=== PATIENT | female | born 1985 | race Caucasian/White ===

== ENCOUNTER 2020-04-17 06:54 | Outpatient (CLI) | payer BC, SELFPAY ==
--- NOTE | ~2020-04-17 | MR_ITS ---
EXAMINATION: MR lumbar spine wo con DATE: 04/17/2020 07:51 INDICATION: Lumbar radiculopathy. TECHNIQUE: Magnetic resonance imaging (MRI) of the lumbar spine was performed without intravenous con trast. Sequences included sagittal T2-weighted FSE, sagittal T2-weighted FS FSE, sagittal T1-weighted FSE, and axial T2-weighted FSE. COMPARISON: Lumbar spine MRI 12/30/2017 FINDINGS: There is 5 degrees dextrocurvature of lumbar spine. There are Schmorl's nodes at most level s. There is mildly decreased disc height at L4-L5 and L5-S1. The distal spinal cord signal intensity is normal. The conus medullaris is at L1. The following disc levels are specifically discussed: L1-L2: The disc does not extend beyond the endplate margin. There is mild bilateral facet joint osteo arthritis. There is no neural foraminal stenosis. There is no central canal stenosis. L2-L3: The disc does not extend beyond the endplate margin. There is mild bilateral facet joint osteo arthritis. There is no neural foraminal stenosis. There is no central canal stenosis. L3-L4: The disc does not extend beyond the endplate margin. There is mild bilateral facet joint osteo arthritis. There is no neural foraminal stenosis. There is no central canal stenosis. L4-L5: The disc is bulging with superimposed left central extrusion with mass effect on the bilateral L5 nerve roots in the lateral recesses. There is mild bilateral facet joint osteoarthritis. There is moderate right and mild left neural foraminal stenosis. There is mild central canal stenosis. L5-S1: The disc is bulging and has an annular fissure. There is mild bilateral facet joint osteoarthr itis. There is mild bilateral neural foraminal stenosis. There is mild central canal stenosis. IMPRESSION: 1. Moderate lower lumbar spondylosis with interval improvement at L5-S1. Reviewed, dictated and finalized at location B.
== END 2020-04-17 06:55 | disposition home or self-care (01) ==
PROVIDERS: PCP Physician Assistant; Visit Provider Nurse Practitioner Adult Health
DX: M54.16 Radiculopathy, lumbar region (principal)
CPT/HCPCS: 72148

== ENCOUNTER 2020-06-10 06:58 | Outpatient (NON) | payer BC, SELFPAY ==
[2020-06-10 18:21] LABS: SARS-CoV-2 RNA PCR Positive
== END 2020-06-10 06:59 ==
LOC: ANHCOVIDDT 07:16
PROVIDERS: PCP Physician Assistant; Visit Provider Physician Assistant
DX: U07.1 COVID-19 (principal)
CPT/HCPCS: 87635; C9803; U0003

== ENCOUNTER 2021-07-16 11:20 | Outpatient (CLI) | payer BC, SELFPAY ==
[2021-07-16 12:54] LABS: SARS-CoV-2 Ag Negative (Negative)
== END 2021-07-16 11:21 | disposition home or self-care (01) ==
LOC: CHSLAB 11:22
PROVIDERS: PCP Physician Assistant; Visit Provider Physician Assistant
DX: R68.89 Other general symptoms and signs (principal)
CPT/HCPCS: 87426; C9803

== ENCOUNTER 2022-05-30 08:03 | Emergency (ER) | payer BC, SELFPAY ==
--- NOTE | 2022-05-30 08:08 | ED.URI ---
HPI - URI/Sore Throat General Chief Complaint: Upper Respiratory Infection Stated Complaint: Sore Throat Time Seen by Provider: 05/30/22 08:08 Source: patient, RN notes reviewed and old records reviewed Mode of arrival: ambulatory Limitations: no limitations History of Present Illness HPI Narrative: 37-year-old female presents to the [facility] with complaints of a sore throat. Started yesterday with a scratchy throat. Woke up this morning with low-grade fever and painful swallowing. No treatment prior to arrival Onset (ago): day(s) (1) Consistency: constant Related Data Allergies Allergy/AdvReac Type Severity Reaction Status Date / Time erythromycin base Allergy Mild unkown Verified 05/30/22 08:42 Penicillins Allergy Mild Unknown Verified 05/30/22 08:42 Review of Systems Review of Systems: All systems reviewed & are unremarkable except as noted in HPI and below Constitutional: Constitutional: Reports no additional constitutional complaints, Denies chills and Denies fever(s) Eyes: Eyes: Reports no additional eye complaints ENT: Reports as per HPI and Reports sore throat Cardiovascular: Cardiovascular: Reports no additional cardiovascular complaints Respiratory: Respiratory: Reports no additional respiratory complaints Gastrointestinal: Gastrointestinal: Reports no additional gastrointestinal complaints Musculoskeletal: Musculoskeletal: Reports no additional musculoskeletal complaints Integumentary/Breasts: Skin/Breast: Reports system reviewed and no additional complaints, except as docu Neurologic: Reports system reviewed and no additional complaints, except as documented Psychiatric: Psychiatric: Reports no additional psychiatric complaints Allergic/Immunologic: Allergic/Immunologic: Reports no additional allergic/immunologic complaints PMFSH Past Medical History Medical History Anxiety and depression Family History Family History Father Back pain COPD (chronic obstructive pulmonary disease) Diabetes mellitus Mother Hypertension Migraine headache Mother Family history of migraine headaches Patient's mother is in good health Grandparent Hypertension Family history of Alzheimer's disease Family history of hearing loss Father Family history of chronic obstructive pulmonary disease Family history of diabetes mellitus in first degree relative Other Family history of malignant neoplasm of breast Social History Social History Smoking packs per day: 0.5 Smoking cigarettes per day: 10.0 Years smoked: 1 Smoking pack-years: 0.50 Smoking status: Former smoker Second hand tobacco smoke exposure: No Smoking end date: 07/10/17 Alcohol intake: current Comments At the time of my signature, I reviewed and agree with the nursing past medical, surgical, social, and family history. There is no relevant family history pertinent to the patient complaint. Exam Const: General: no acute distress, well developed, alert, ill appearing (mild) acutely, uncomfortable and well nourished Nutritional Appearance: well nourished and obese Orientation/consciousness: patient oriented x3 Limitations: no limitations HENMT: Head: normal to inspection Ears: external ears normal, TM's normal bilaterally and EAC's normal Face/Nose/Sinus: Normal external nose present Face and sinus: normal facial exam Mouth: Yes Normal oral and palatal mucosa present, Yes lip normal and Yes tongue normal Throat: tonsils normal, uvula midline, posterior oropharynx abnormal erythema; no exudates and uvular edema Eyes: General: appearance normal, both eyes and all related structures Conjunctivae: conjunctivae normal Pupils: Equal, round and reactive pupils present Neck: Neck: normal visual inspection, full ROM, no lymphadenopathy and no meningeal signs Chest:
[2022-05-30 08:20] VITALS: BP 147/95; PULSE 92; RESP 14; TEMP 37.4; O2SAT 98
== END 2022-05-30 08:44 | disposition home or self-care (01) ==
PROVIDERS: Emergency Provider Nurse Practitioner; PCP Physician Assistant
DX: K12.2 Cellulitis and abscess of mouth (principal); Z87.891 Personal history of nicotine dependence; F41.9 Anxiety disorder, unspecified; F32.A Depression, unspecified
CPT/HCPCS: 87081; 87804; 87880; 99213; G0463

== ENCOUNTER 2022-06-01 14:04 | Outpatient (CLI) | payer BC, SELFPAY ==
[2022-06-01 15:14] LABS: SARS-CoV-2 RNA PCR Positive
== END 2022-06-01 14:05 | disposition home or self-care (01) ==
LOC: ANHLAB 14:06
PROVIDERS: PCP Physician Assistant; Visit Provider Physician Assistant
DX: U07.1 COVID-19 (principal)
CPT/HCPCS: U0003; U0005

== ENCOUNTER 2023-01-18 16:50 | Outpatient (CLI) | payer BC, SELFPAY ==
--- NOTE | ~2023-01-18 | XR_ITS ---
EXAMINATION: XR shoulder LT min 2V DATE: 01/18/2023 17:14 INDICATION: Cervical radiculopathy. TECHNIQUE: 4 views of left shoulder were obtained. COMPARISON: None. FINDINGS: Bone alignment is normal. No fracture. There is mild osteoarthritis of glenohumeral joint. Acromioclavicular joint is normal. IMPRESSION: 1. Mild left glenohumeral joint osteoarthritis. Reviewed, dictated and finalized at location E.
--- NOTE | ~2023-01-18 | XR_ITS ---
EXAMINATION: XR cervical spine 4-5V DATE: 01/18/2023 17:14 INDICATION: Radiculopathy, cervical region. TECHNIQUE: 4 views of cervical spine were obtained. COMPARISON: None. FINDINGS: There is kyphosis of cervical spine. There is 5 degrees levocurvature of cervical spine. Ve rtebral body heights and intervertebral disc heights are normal. There is mild uncovertebral joint os teoarthritis on the right at C4-C5 and C5-C6. There is multilevel facet joint osteoarthritis, moderat e to severe at C7-T1. There is mild central canal stenosis at C4-C5 and C5-C6. No prevertebral soft t issue swelling. IMPRESSION: 1. Mild cervical spondylosis. Reviewed, dictated and finalized at location E.
== END 2023-01-18 16:51 | disposition home or self-care (01) ==
PROVIDERS: PCP Physician Assistant; Visit Provider Physician Assistant
DX: M47.22 Other spondylosis with radiculopathy, cervical region (principal); M19.012 Primary osteoarthritis, left shoulder
CPT/HCPCS: 72050; 73030

== ENCOUNTER 2023-02-04 10:34 | Outpatient (CLI) | payer BC, SELFPAY ==
--- NOTE | ~2023-02-04 | MR_ITS ---
MRI of the cervical spine Clinical History: Radiculopathy Technique: Axial T2-weighted and gradient images, and sagittal T1-weighted, T2-weighted, and STIR shanta ges were acquired. Findings: There is no fracture or subluxation of cervical spine. Vertebral bodies maintain normal hei ght and alignment. There is mild reversal of the normal cervical lordosis. No suspicious bone marrow signal abnormality seen. At C2-C3, there is no disc bulge or herniation. No spinal canal stenosis, cord compression, or neural foraminal narrowing. At C3-C4, there is minimal disc osteophyte complex. There is no spinal canal stenosis, cord compressi on, or definite neural foraminal narrowing. At C4-C5, there is no disc bulge or herniation. No spinal canal stenosis or cord compression. There i s right neural foraminal narrowing with mild right facet arthropathy. Left neural foramen preserved. At C5-C6, there is mild disc osteophyte complex. No spinal canal stenosis, cord compression, or defin ite neural foraminal narrowing. At C6-C7, there is mild disc osteophyte complex. No stuart spinal canal stenosis or cord compression. Probable mild left neural foraminal narrowing. Right neural foramen preserved. No abnormal signal seen in the spinal cord. Paravertebral soft tissues are unremarkable. Impression: Mild degenerative spondylosis, as above. Reviewed, dictated and finalized at [facility]. Impression: Mild degenerative spondylosis, as above.
== END 2023-02-04 10:35 | disposition home or self-care (01) ==
LOC: ANHIMG 10:35
PROVIDERS: PCP Physician Assistant; Visit Provider Physician Assistant
DX: M54.2 Cervicalgia (principal); G89.29 Other chronic pain; M54.12 Radiculopathy, cervical region; M43.02 Spondylolysis, cervical region
CPT/HCPCS: 72141

== ENCOUNTER 2023-04-26 16:11 | Emergency (ER) | payer BC, SELFPAY ==
[2023-04-26 16:18] VITALS: BP 150/91; PULSE 83; RESP 16; TEMP 36.8; O2SAT 100
--- NOTE | 2023-04-26 16:28 | ED.URI ---
HPI - URI/Sore Throat General Chief Complaint: Upper Respiratory Infection Stated Complaint: Cough Time Seen by Provider: 04/26/23 16:28 Source: patient, RN notes reviewed and old records reviewed Mode of arrival: ambulatory Limitations: no limitations History of Present Illness HPI Narrative: 38-year-old female presents to the [facility] with complaints of a cough since Monday, 4 days. Patient is not a smoker or vapor. Reports congestion. Denies fevers, shortness of breath. Denies chest pain. No abdominal pain Related Data Allergies Allergy/AdvReac Type Severity Reaction Status Date / Time erythromycin base Allergy Mild unkown Verified 04/26/23 16:19 Penicillins Allergy Mild Unknown Verified 04/26/23 16:19 Review of Systems Review of Systems: All systems reviewed & are unremarkable except as noted in HPI and below Constitutional: Constitutional: Reports no additional constitutional complaints Eyes: Eyes: Reports no additional eye complaints ENT: Reports system reviewed and no additional complaints, except as documented Cardiovascular: Cardiovascular: Reports no additional cardiovascular complaints, Denies chest pain and Denies dyspnea Respiratory: Respiratory: Reports as per HPI, Reports chest congestion, Reports cough and Denies dyspnea Gastrointestinal: Gastrointestinal: Reports no additional gastrointestinal complaints, Denies abdominal pain, Denies nausea and Denies vomiting Musculoskeletal: Musculoskeletal: Reports no additional musculoskeletal complaints Integumentary/Breasts: Skin/Breast: Reports system reviewed and no additional complaints, except as docu Neurologic: Reports system reviewed and no additional complaints, except as documented Psychiatric: Psychiatric: Reports no additional psychiatric complaints Allergic/Immunologic: Allergic/Immunologic: Reports no additional allergic/immunologic complaints [facility] Past Medical History Medical History Anxiety and depression Family History Family History Father Back pain COPD (chronic obstructive pulmonary disease) Diabetes mellitus Mother Hypertension Migraine headache Mother Family history of migraine headaches Patient's mother is in good health Grandparent Hypertension Family history of Alzheimer's disease Family history of hearing loss Father Family history of chronic obstructive pulmonary disease Family history of diabetes mellitus in first degree relative Other Family history of malignant neoplasm of breast Social History Social History Smoking packs per day: 0.5 Smoking cigarettes per day: 10.0 Years smoked: 1 Smoking pack-years: 0.50 Smoking status: Former smoker Second hand tobacco smoke exposure: No Smoking end date: 07/10/17 Alcohol intake: current Substance use: unknown Lack of Transportation: No Lack of Food: Never True Current Housing: I Have Housing Concerned About Future Housing: No Difficulty Paying Gas/Electric Bills: No Difficulty Paying for Meds: No Currently Unemployed: No Education: High School Diploma/GED Difficulty w/ Childcare or Family Care: No Comments At the time of my signature, I reviewed and agree with the nursing past medical, surgical, social, and family history. There is no relevant family history pertinent to the patient complaint. Exam Const: General: cooperative, healthy appearing, comfortable, no acute distress, well developed, alert and well nourished Nutritional Appearance: well nourished Orientation/consciousness: patient oriented x3 Limitations: no limitations HENMT: Head: normal to inspection Ears: hearing grossly normal bilaterally and external ears normal Face/Nose/Sinus: Normal external nose present, Normal nares present, Normal nasal mucous membranes and turbinates present
== END 2023-04-26 16:45 | disposition home or self-care (01) ==
PROVIDERS: Emergency Provider Nurse Practitioner; PCP Physician Assistant
DX: J40 Bronchitis, not specified as acute or chronic (principal); Z87.891 Personal history of nicotine dependence; F41.9 Anxiety disorder, unspecified; F32.A Depression, unspecified
CPT/HCPCS: 99213; G0463

== ENCOUNTER 2023-08-02 09:23 | Outpatient (CLI) | payer BC, SELFPAY ==
--- NOTE | 2023-08-15 18:49 | WPDHOMESLEEP ---
Sleep Study - Home Unattended Date of Study: 08/02/23 Ordering Provider: Yonathan Soto PA-C Interpreting Provider: Etta Hilliard, DO Home Sleep Study Type: Watch PAT Height: 1.7 m Weight: 108.862 kg Body Mass Index: 37.5 Neck Circumference (inches): 15.5 [place]: 1 Reason for Sleep Study Difficulty falling asleep and staying asleep Sleep History The patient is a 38-year-old female with depression, anxiety and history of tobacco use that had a sleep study ordered by her primary care for evaluation of sleep apnea. the patient frequently awakens from sleep short of breath. She frequently awakens at night with heartburn, belching or cough. She constantly snores loudly enough that others complain. She constantly has trouble sleeping when she has a cold. She frequently wakes up gasping for air throughout the night. She frequently has breathing problems at night observed by herself or others. She rarely sweats excessively at night. She denies having heart palpitations or irregular heartbeats during the night. He denies falling asleep during the day and driving. She denies sleep paralysis and cataplexy. She occasionally has trouble at school or work due to sleepiness. He rarely experiences vivid dreamlike scenes upon awakening or falling asleep. She denies feeling afraid of going to sleep. She rarely has nightmares. She rarely remembers her dreams. She frequently has thoughts racing through her mind. She frequently feels sad, depressed and anxious. She denies having muscular tension. She rarely notices parts of her body jerk. She rarely kicks during the she denies having crawling and aching feelings in her legs and denies having leg pain during the night. She denies grinding her teeth during sleep and denies awakening with morning jaw pain. She denies being bothered by pain during the day and denies being awakened by pain during the night. She frequently wakes up feeling stiff in the morning. She occasionally wakes up with sore or achy muscles. She occasionally wakes up with pain in the neck, spine and other joints. She goes to bed at 10:00 p.m. on weekdays and 11:00 p.m. on the weekends. It takes her 45-60 minutes to fall asleep. She wakes up 1-2 times throughout the night for unknown reasons and a can take over an hour for her to fall back asleep. She wakes up at 6:00 a.m. on weekdays and between 6-7 a.m. the weekends. She typically it is 5-6 hours of sleep per night. She does not spend time in bed after waking up in the morning. She currently lives with her and 1 child. She denies consuming any caffeinated beverages within 2 hours of bedtime she denies engaging in physical exercise before bedtime. She will watch television before falling asleep. She denies taking naps in the afternoon or the evening. She consumes 2 cups of coffee per day. He is a former smoker. She denies alcohol and recreational drug use. [facility] Past Medical History Medical History Anxiety and depression Family History Family History Father Back pain COPD (chronic obstructive pulmonary disease) Diabetes mellitus Mother Hypertension Migraine headache Mother Family history of migraine headaches Patient's mother is in good health Grandparent Hypertension Family history of Alzheimer's disease Family history of hearing loss Father Family history of chronic obstructive pulmonary disease Family history of diabetes mellitus in first degree relative Other Family history of malignant neoplasm of breast Social History Social History Smoking packs per day: 0.5 Smoking cigarettes per day: 10.0 Years smoked: 1 Smoking pack-years: 0.50 Smoking status: Former smoker Second hand tobacco smoke exposure: No Smoking end date: 07/10/17 Alcohol in
[2023-08-15 18:57] VITALS: BMI 37.5
== END 2023-08-03 12:47 | disposition home or self-care (01) ==
LOC: ANHCSM 09:25
PROVIDERS: PCP Internal Medicine; Visit Provider Physician Assistant
DX: G47.00 Insomnia, unspecified (principal); G47.33 Obstructive sleep apnea (adult) (pediatric); G47.10 Hypersomnia, unspecified
CPT/HCPCS: 95800